=== PATIENT | male | born 1975 | race Caucasian/White ===

== ENCOUNTER 2018-12-26 05:43 | Observation (INO) | payer OTHER ==
[2018-12-25 15:56] VITALS: BMI 37.4
[2018-12-26] VITALS (24 sets, daily range): BP systolic 106–150; BP diastolic 59–103; PULSE 72–94; RESP 15–20; Ht 185.4 cm; Wt 125.0 kg
[~2018-12-26] VITALS: Ht 185.4 cm; Wt 125.0 kg
[~2018-12-26 05:43] MED LIST: GABA-526 PO
[2018-12-26] MEDS ORDERED: ROCURONIUM 50 MG INJ ONE (07:00)
[2018-12-26] MEDS ORDERED: SUCCINYLCHOLINE CHLORIDE 100 MG/5 ML SYG IV ONE (07:00)
[2018-12-26] MEDS ORDERED: DESFLURANE 15 MIN ONE (07:00)
--- NOTE | 2018-12-26 07:30 | HPN ---
Date/Time of Note Date/Time of Note DATE: 12/26/18 TIME: 07:30 Interval H&P Admission Note Pt. seen H&P reviewed: No system changes VENECIA MORENO MD Dec 26, 2018 07:30
--- NOTE | 2018-12-26 07:43 | PREAC ---
Date/Time of Note Date/Time of Note DATE: 12/26/18 TIME: 07:41 Anesthesia Eval and Record Evaluation Time Pre-Procedure Interview DATE: 12/26/18 TIME: 07:41 Age 43 Sex male NPO: 8 hrs Preoperative diagnosis [id number] right paracentral disk herniation Planned procedure [id number] diskectomy, arthroplasty and fusion Past Medical History Past Medical History: Includes Neuro: Other (neuropatic pain ) Surgery & Anesthesia Issues No known issue Meds Anticoagulation: No Beta Biju within 24 hr: No Reason Beta Biju not given: Pt. not on B-Biju Reported Medications Gabapentin* (Gabapentin*) 600 Mg Tablet, 600 MG PO BID, #60 TAB 12/25/18 Meds reviewed: Yes Allergies Coded Allergies: No Known Allergy (Unverified , 12/26/18) Allergies Reviewed: Yes Labs/Studies Labs Reviewed: Reviewed by anesthesiologist test: N/A Pre-procedure Exam Last vitals Vital Signs Date Temp Pulse Resp B/P (MAP) Pulse Ox O2 O2 Flow FiO2 Time Delivery Rate 12/26/18 96.9 92 18 146/103 99 06:34 (117) Airway: Adequate mouth opening, Adequate thyromental dist Mallampati: Mallampati III Teeth: Normal Lung: Normal Heart: Normal ASA Physical Status ASA physical status: 1 Emergency: None Pre-operative Attestations Prior to commencing anesthesia and surgery, the patient was re-evaluated, there was verification of: *The patient's identity *The results of appropriate recent lab work and preoperative vital signs *The above evaluation not changing prior to induction *Anesthetic plan, risk benefits, alternative and complications discussed with patient/family; questions answered; patient/family understands, accepts and wishes to proceed. DIONICIO WARD DO Dec 26, 2018 07:43
[2018-12-26] MEDS ORDERED: THROMBIN (BOVINE) 5,000 UNIT VIAL TP ONE (07:51)
[2018-12-26] MEDS ORDERED: PROPOFOL 20 ML ONE (07:51)
[2018-12-26] MEDS ORDERED: GELATIN SIZE 100 SPONGE ONE (07:51)
[2018-12-26] MEDS ORDERED: SUGAMMADEX SODIUM 200 MG/2 ML VIAL IV ONE ×2 (07:52→11:39)
[2018-12-26] MEDS ORDERED: POLYMYXIN/BACITRACIN 1L IRRIG ONE (07:52)
[2018-12-26] MEDS ORDERED: BUPIVACAINE 0.5%/EPI (SDV) 30 ML INJ ONE (07:52)
[2018-12-26] MEDS ORDERED: LIDOCAINE 1% (MDV) 20 ML INJ ONE (07:52)
[2018-12-26] MEDS ORDERED: MIDAZOLAM 1 MG/ML 2 ML INJ ONE (07:52)
[2018-12-26] MEDS ORDERED: MEPERIDINE 25 MG INJ IV PRN (08:00)
[2018-12-26] MEDS ORDERED: HYDROmorphONE 1 MG/5 ML IV SYRINGE IV PRN ×2 (08:00)
[2018-12-26] MEDS ORDERED: ONDANSETRON 4 MG INJ IV PRN ×2 (08:00→12:30)
[2018-12-26] MEDS ORDERED: hydrALAzine 20 MG INJ IV PRN (08:00)
[2018-12-26] MEDS ORDERED: LORAZEPAM 2 MG INJ IV PRN (08:00)
[2018-12-26] MEDS ORDERED: LABETALOL HCL 20MG INJ IV PRN (08:00)
[2018-12-26] MEDS ORDERED: DIPHENHYDRAMINE 50 MG INJ IV PRN (08:00)
[2018-12-26] MEDS ORDERED: CEFAZOLIN 1 GM INJ ONE (08:34)
[2018-12-26] MEDS ORDERED: DEXAMETHASONE 4 MG/ML 5 ML INJ ONE (08:40)
[2018-12-26] MEDS ORDERED: ONDANSETRON 4 MG INJ ONE (08:40)
[2018-12-26] MEDS ORDERED: LABETALOL HCL 20MG INJ ONE (08:41)
[2018-12-26] MEDS ORDERED: FENTAnyl 50 MCG/ML VIAL ONE ×2 (09:02→11:55)
[2018-12-26] MEDS ORDERED: POLYMYXIN/BACITRACIN 1L IRRIG IRR ONE (09:21)
--- NOTE | 2018-12-26 12:03 | OPR ---
Date/Time of Note Date/Time of Note DATE: 12/26/18 TIME: 11:57 Operative Report Free Text/Dictation DATE OF OPERATION: 12/26/2018 PREOPERATIVE DIAGNOSES: 1. 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 Morbid Obesity BMI: 36.4 kg/m2 POSTOPERATIVE DIAGNOSES: 1. 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 Morbid Obesity BMI: 36.4 kg/m2 OPERATION PERFORMED: 1. Anterior cervical C5-6 diskectomy. 2. Anterior cervical disc replacement, C5-6 3. Use of Operative microscope. 4. Interpretation of Neuromonitoring SURGEON: Venecia Moreno MD FIELD APPLICATION ENGINEER: Skinny Paz MD INDICATIONS: Mr. Tubbs is a 43-year-old gentleman who presents with a year history of right upper extremity pain and weakness refractory to conservative management associated with extension and rotation as well as axial loading. Preoperative imaging studies demonstrated a right paracentral disk herniation at the C5-6 level cord compression and C6 nerve root compression. After having failed all attempts at conservative management, he understood the risks included, but were not limited to, infection, neurologic injury, blood loss, dural tear, persistence of preoperative symptoms and a potential need for further operative procedures and elected to proceed with surgery. PROCEDURE IN DETAIL: The patient was brought in the operating room. General anesthesia was obtained. Preoperative antibiotics were given. He was carefully positioned supine on the radiolucent table. The arms were padded and tucked at the sides. The neck was sterilely prepped and draped in the usual fashion. A standard left-sided skin incision was made in a prominent anterior skin fold. This was continued down through subcutaneous tissue to the platysma fascia. Full-thickness skin flaps were developed. The platysma was split in line with the direction of its fibers. The dissection proceeded through the deep cervical fascia at the interval between the esophagus and spine. The prevertebral fascia was carefully incised, cleared off at the anterior aspect of the C5-6 disk space. The anterior longitudinal ligament was carefully isolated as was the longus coli bilaterally. A Lowndes retraction cannula was placed into the C5 vertebral body, and an intraoperative radiograph was obtained to confirm the location of the midline along with the operative level. Once this was confirmed, a 2nd Lowndes pin was placed in the C6 vertebral body, and the longus colli was mobilized bilaterally using bipolar cautery and an elevator. A deep self- retaining retractor was placed underneath the longus colli bilaterally and then distraction was applied across the interspace. The operative microscope was at this point brought in. The osteophyte projecting over the anterior aspect of the C5-6 disk space was at this point resected with a spinal rongeur, and then the anterior portion of the disk was incised with a #15 blade. The disk was excised in its entirety using a series of pituitary rongeurs and angled curettes back to the posterior longitudinal ligament. The uncovertebral osteophyte was resected along its medial 3rd to provide a platform for the disk replacement and also to allow for foraminal decompression. The posterior osteophytes projecting off the back of the C5 and C6 vertebral bodies were slightly burred down, and then the posterior longitudinal ligament was resected , 1st centrally and then in either direction. A foraminotomy was performed bilaterally until a probe could be easil y passed along the pathway of the C6 root. Hemostasis was obtained at this point, and then a series of trial sizers were used to select an implant 17 mm wide by 5 mm tall x 15 mm in an anterior-posterior depth. Intraoperative radiographs demonstrated good alignment of the trial, and then the final implant was selected and then inserted into the disk space under dredgemaster's instr uctions using the appropriate instrumentation. Once this was positioned appropriately and extended to the back of the C5 and C6 vertebral bodies, the operative site was washed out extensively with sterile normal saline. There was no significant bleeding. The [place] pins were removed, and the sites were blocked off with bone wax. The platysma fascia was then closed with 3-0 Vicryl s uture in a interrupted fashion over a medium Hemovac, followed by 4-0 Monocryl suture in a running subcuticular fashion. Dermabond was placed, followed by a sterile dressing. The patient was extubated and transferred out to the postanesthesia care unit in a soft collar in good condition. There were no complications. Given the patient morbid BMI 36.4 kg/m2 this procedure took an additional 45 minutes for exposure and implant placement. Procedure Date: Dec 26, 2018 Preoperative Diagnosis 1. 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 Morbid Obesity BMI: 36.4 kg/m2 Postoperative Diagnosis 1. 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 Morbid Obesity BMI: 36.4 kg/m2 Operation/Procedure Performed 1. Anterior cervical C5-6 diskectomy. 2. Anterior cervical disc replacement, C5-6 3. Use of Operative microscope. 4. Interpretation of Neuromonitoring Surgeon see signature line Or Scrub Tech HANY Longo Anesthesia Type: general Estimated Blood Loss: 10 - 50 ml's Transfusion none Specimen C5-6 disk Grafts/Implants see op report Complications none Pt Condition Post Procedure: stable Disposition: PACU Procedure Description PROCEDURE IN DETAIL: The patient was brought in the operating room. General anesthesia was obtained. Preoperative antibiotics were given. He was carefully positioned supine on the radiolucent table. The arms were padded and tucked at the sides. The neck was sterilely prepped and draped in the usual fashion. A standard left-sided skin incision was made in a prominent anterior skin fold. This was continued down through subcutaneous tissue to the platysma fascia. Full-thickness skin flaps were developed. The platysma was split in line with the direction of its fibers. The dissection proceeded through the deep cervical fascia at the interval between the esophagus and spine. The prevertebral fascia was carefully incised, cleared off at the anterior aspect of the C5-6 disk space. The anterior longitudinal ligament was carefully isolated as was the longus coli bilaterally. A Lowndes retraction cannula was placed into the C5 vertebral body, and an intraoperative radiograph was obtained to confirm the location of the midline along with the operative level. Once this was confirmed, a 2nd Lowndes pin was placed in the C6 vertebral body, and the longus colli was mobilized bilaterally using bipolar cautery and an elevator. A deep self- retaining retractor was placed underneath the longus colli bilaterally and then distraction was applied across the interspace. The operative microscope was at this point brought in. The osteophyte projecting over the anterior aspect of the C5-6 disk space was at this point resected with a spinal rongeur, and then the anterior portion of the disk was incised with a #15 blade. The disk was excised in its entirety using a series of pituitary rongeurs and angled curettes back to the posterior longitudinal ligament. The uncovertebral osteophyte was resected along its medial 3rd to provide a platform for the disk replacement and also to allow for foraminal decompression. The posterior osteophytes projecting off the back of the C5 and C6 vertebral bodies were slightly burred down, and then the posterior longitudinal ligament was resected , 1st centrally and then in either direction. A foraminotomy was performed bilaterally until a probe could be easily passed along the pathway of the C6 root. Hemostasis was obtained at this point, and then a series of trial sizers were used to select an implant 17 mm wide by 5 mm tall x 15 mm in an anterior-posterior depth. Intraoperative radiographs demonstrated good alignment of the trial, and then the final implant was selected and then inserted into the disk space under dredgemaster's instructions using the appropriate instrumentation. Once this was positioned appropriately and extended to the back of the C5 and C6 vertebral bodies, the operative site was washed out extensively with sterile normal saline. There was no significant bleeding. The David pins were removed, and the sites were blocked off with bone wax. The platysma fascia was then closed with 3-0 Vicryl suture in a interrupted fashion over a medium Hemovac, followed by 4-0 Monocryl suture in a running subcuticular fashion. Dermabond was placed, followed by a sterile dressing. The patient was extubated and transferred out to the postanesthesia care unit in a soft collar in good condition. There were no complications. Given the patient morbid BMI 36.4 kg/m2 this procedure took an additional 45 minutes for exposure and implant placement. VENECIA MORENO MD Dec 26, 2018 12:03
--- NOTE | 2018-12-26 12:08 | PAC ---
Date/Time of Note Date/Time of Note DATE: 12/26/18 TIME: 12:07 Post-Anesthesia Notes Post-Anesthesia Note Last documented vital signs Vital Signs Date Temp Pulse Resp B/P (MAP) Pulse Ox O2 O2 Flow FiO2 Time Delivery Rate 12/26/18 98 80 22 142/65 99 1207 Activity: WNL Respiratory function: WNL Cardiovascular function: WNL Mental status: Baseline Pain reasonably controlled: Yes Hydration appropriate: Yes Nausea/Vomiting absent: Yes DOINICIO WARD DO Dec 26, 2018 12:08
[2018-12-26] MEDS ORDERED: HYDROCODONE/APAP (5/325) TAB PO PRN ×2 (12:30)
[2018-12-26] MEDS ORDERED: NALOXONE (0.4 MG/ML) INJ IV PRN (12:30)
[2018-12-26] MEDS ORDERED: HYDROmorphONE 0.2 MG/ML PCA IV SCH (12:30)
[2018-12-26] MEDS ORDERED: AL HYDROX/MG HYDROX/SIMETH 30 ML CUP PO PRN (12:30)
[2018-12-26] MEDS ORDERED: PROCHLORPERAZINE 10 MG TAB PO PRN (12:30)
[2018-12-26] MEDS ORDERED: NACL 0.9% 3 ML SYG IV SCH (12:30)
[2018-12-26] MEDS ORDERED: HYDROmorphONE 1 MG/5 ML IV SYRINGE IV ONE (12:37)
--- NOTE | 2018-12-26 14:00 | CONS ---
DATE OF ADMISSION: 12/26/2018 DATE OF CONSULTATION: 12/26/2018 TYPE OF CONSULTATION: POSTOP MEDICAL Thank you very much for allowing me to evaluate the above patient, a 43-year-old male who just underw ent cervical spine surgery. HISTORICAL EVENTS: As you well know, the patient did suffer an injury in early July of 2018 resu lting in neck and right shoulder and arm pain. Because of continued pain and following evidence of a large right paracentral disk herniation C5-C6 and related C6 radiculopathy, the patient elected to p roceed with surgery. EMG and NCS showed an acute C6 radiculopathy. Postoperatively, he notes modest neck pain without at present radicular shoulder pain. He denies nausea, vomiting, abdominal pain, o r chest pain. MEDICATIONS: Prior to admission Gabapentin 200 mg at night. PAST MEDICAL HISTORY: Otherwise, his past medical history is unrevealing for coronary artery disease , diabetes or hypertension. FAMILY HISTORY: Positive for cancer and heart disease. SOCIAL HISTORY: He is a nondrinker, nonsmoker. PHYSICAL EXAMINATION: GENERAL: Dewar male in no acute distress. VITAL SIGNS: BP 122/80, pulse 70, respirations 20, he was afebrile. EYES: Extraocular muscles were full. NOSE, MOUTH, AND THROAT: Normal. NECK: No jugular venous distention, thyroid enlargement or adenopathy. LUNGS: Clear. HEART: Rhythm regular, no murmur. No third or fourth sound. ABDOMEN: Nontender. Liver and spleen were not palpable. No mass or tenderness were noted. EXTREMITIES: No edema. Calves nontender. Pulses 2+. IMPRESSION: 1. Stable postoperative cervical spine surgery. 2. Will evaluate daily for signs and symptoms of thromboembolic disease. Will follow with you. Dictated By: CHERRI MACHADO MD MR/NTS Conf#: [id number] DID#: [id number] CC: VENECIA MORENO MD;*End*
[2018-12-26] MEDS: CEFAZOLIN 1 GM/50 ML (PMX) 50 ML IVPB SCH ×2 (18:16→23:36)
[2018-12-26] MEDS: CEPASTAT LOZENGE MT PRN ×2 (18:16→19:59)
[2018-12-26] MEDS: LIDOCAINE 5% PATCH TD SCH (21:30)
[2018-12-27] MEDS: ACETAMINOPHEN 325 MG TAB PO PRN ×2 (03:07→08:56)
[2018-12-27 04:42] VITALS: BP 138/78; PULSE 88; RESP 20
[2018-12-27] MEDS: CEFAZOLIN 1 GM/50 ML (PMX) 50 ML IVPB SCH (05:23)
[2018-12-27 07:14] VITALS: BP 135/83; PULSE 82; RESP 15
[2018-12-27] MEDS: LIDOCAINE 5% PATCH TD SCH (08:56)
[2018-12-27] MEDS ORDERED: DOCUSATE SODIUM 100 MG CAP PO SCH (09:00)
--- NOTE | 2018-12-27 09:26 | PDOCDIS ---
Discharge Instructions CONDITION [id number] Patient Condition: [id number] Good HOME CARE INSTRUCTIONS: [id number] Diet Instructions: [id number] Regular ACTIVITY: [id number] Activity Restrictions: [id number] Avoid heavy lifting [id number] Bathing Restrictions: [id number] Shower FOLLOW UP/APPOINTMENTS Follow-up Plan Follow-up with Dr. Moreno in 2 weeks VENECIA MORENO MD Dec 27, 2018 09:26
[2018-12-27] MEDS ORDERED: DEXAMETHASONE 10 MG/ML 1 ML INJ IV STA (09:48)
== END 2018-12-27 11:47 | disposition home or self-care (01) ==
LOC: SDS 05:43 → REC 12:06 → SDS 12:06 → MS1 14:13
PROVIDERS: ADMIT Orthopaedic Surgery; ATTEND Orthopaedic Surgery
DX: M50.122 Cervical disc disorder at C5-C6 level with radiculopathy (principal); E66.01 Morbid (severe) obesity due to excess calories; Z68.36 Body mass index [BMI] 36.0-36.9, adult
CPT/HCPCS: 22856; 72050; 80048; 85014; 85018; 86850; 86900; 86901; 88304; 97116; 97161; 99217; G0378; J0690; J1100; J1170; J2250; J2405; J3010